=== PATIENT | male | born 1970 | race Caucasian/White ===

== ENCOUNTER 2017-05-14 15:46 | Emergency (ER) | payer OTHER ==
--- NOTE | ~2017-05-14 | CT2 ---
[facility] A Service of [facility] RADIOLOGY TEXT RESULTS PATIENT: LÁZARO PACHECO LOCATION: [facility] : 74 UNIT #: [id number] AGE: [address]: Elliot Batista MD SEX: M ORDER DR: [id number] [facility] [address] [place], [place] [address] [id number] MR#: [id number] Acc #: [id number] NAME: LÁZARO PACHECO : 1970 SEX: M STUDY DATE/TIME: 05/14/2017 22:46 UNIT: [facility] ROOM: STUDY DESCRIPTION: CT Abd and Pelv W Cont Attending Physician: Elliot Batista M.D. Ordering Physician: Elliot Batista M.D. [facility] This report is preliminary unless electronic signature is present EXAM CT abdomen and pelvis 05/14/2017 2246 hours INDICATION Abdominal pain with nausea, vomiting and diarrhea for 1 week. TECHNIQUE Axial images were obtained through the abdomen and pelvis following IV contrast administration. Multiplanar reformats were obtained. No comparison. This CT exam was performed with one or more of the following radiation dose reduction techniques: Automatic exposure control, adjustment of mA and/or kV according to patient size, and iterative reconstruction. FINDINGS ABDOMEN: Lung bases are clear. Gallbladder contracted. No biliary obstruction. Solid organs are normal. The unopacified GI tract is normal. No free fluid or adenopathy identified. PELVIS: The appendix is normal. The remainder of the unopacified GI tract is normal as well. Urinary bladder is normal. No free fluid is seen. Patient is status post L4-S1 spinal fusion with pedicle screws. IMPRESSION 1. No acute findings in the abdomen or pelvis. 2. Normal unopacified GI tract including the appendix. 3. Normal nonobstructed kidneys. 4. L4-S1 spinal fusion. Dictated by... Vinnie Yusuf Jr., M.D. [facility] A Service of [facility] RADIOLOGY TEXT RESULTS PATIENT: [facility]ÁZARO PACHECO [id number] 74 UNIT #: [id number] AGE: [address]: Elliot Batista MD SEX: M ORDER DR: THIS IS AN ELECTRONICALLY VERIFIED REPORT Vinnie Yusuf Jr., M.D. at 05/15/2017 9:21 PM [place] TD: 05/15/2017 11:40 JOB #: [id number] MEDICAL IMAGING REPORT Page 1 of 1 COPY
[~2017-05-14 15:46] MED LIST: NO MEDICATIONS
[2017-05-14 18:51] LABS: BASOPHIL# 0.1 X10e3 (0-0.3); BASOPHIL% 0.5 % (0-2.5); EOSINOPHIL# 0.1 X10e3 (0-0.7); EOSINOPHIL% 0.5 % (0.0-7.0); HEMOGLOBIN 15.3 gm/dL (13.0-16.0); LYMPHOCYTE# 3.9 X10e3 (1.0-3.5); LYMPHOCYTE% 29.9 % (17.0-45.0); MEAN CELL VOLUME 89.6 FL (83-96); MEAN CORPUSCULAR HEMOGLOBIN 30.5 PG (28-34); MONOCYTE# 0.8 X10e3 (0-1.0); MONOCYTE% 6.1 % (3.0-12.0); NEUTROPHIL# 8.3 X10e3 (1.5-7.1); PLATELET COUNT 417 X10e3 (140-420); RED BLOOD COUNT 5.02 X10e (3.90-5.60); WHITE BLOOD COUNT 13.2 X10e3 (4.0-10.5)
[2017-05-14 18:52] LABS: DIFF IND NO
[2017-05-14 19:16] LABS: ALBUMIN SERUM 4.1 g/dL (3.5-5.0); BILIRUBIN, DIRECT 0.2 mg/dL (0.0-0.2); BILIRUBIN,INDIRECT 0.5 mg/dL (0.0-0.9); BILIRUBIN,TOTAL 0.7 mg/dL (0.2-2.0); BUN/CREATININE RATIO 22.5; CALCIUM SERUM 9.1 mg/dL (8.4-10.2); CREATININE SERUM 0.8 mg/dL (0.6-1.4); GLOM FILT RATE Estimated 108.7 mL/min (>60); POTASSIUM 4.2 mmol/L (3.5-5.1); PROTEIN TOTAL SERUM 8.1 g/dL (6.0-8.3)
[2017-05-14 20:10] LABS: URINE SOURCE CLEAN CATCH
[2017-05-14 20:23] LABS: URINE APPEARANCE CLEAR; URINE BILIRUBIN NEG (NEG); URINE BLOOD NEG (NEG); URINE COLOR YELLOW; URINE GLUCOSE NEG (NEG); URINE KETONE NEG (NEG); URINE LEUKOCYTE ESTERASE NEG (NEG); URINE NITRATE NEG (NEG); URINE PROTEIN TRACE (NEG); URINE SPECIFIC GRAVITY 1.032 (1.003-1.035)
[2017-05-14 20:28] LABS: CULTURE INDICATED? NO
== END 2017-05-15 00:06 | disposition home or self-care (01) ==
LOC: CED 15:46
DX: R10.84 Generalized abdominal pain (principal); R11.0 Nausea; R19.7 Diarrhea, unspecified; F17.210 Nicotine dependence, cigarettes, uncomplicated
CPT/HCPCS: 36415; 74177; 80048; 80076; 81003; 83690; 85025; 96361; 96374; 96375; 99284; C9113; J1885; J2765; Q9967